=== PATIENT | male | born 1975 | race Caucasian/White ===

== ENCOUNTER → 2017-12-11 | Outpatient (CLI) | payer OTHER | LOC: FIMAGING 14:38 | PROVIDERS: ATTEND Internal Medicine Infectious Disease | DX: R50.9 Fever, unspecified (principal); R05 Cough; R59.1 Generalized enlarged lymph nodes ==

== ENCOUNTER → 2017-12-14 | Outpatient (CLI) | payer MEDICAID, OTHER | LOC: FIMAGING 14:50 | PROVIDERS: ATTEND Internal Medicine Infectious Disease | DX: R59.1 Generalized enlarged lymph nodes (principal); R50.9 Fever, unspecified; R05 Cough ==